=== PATIENT | female | born 1960 | race Caucasian/White ===

== ENCOUNTER → 2024-12-06 12:26 | Outpatient (REF) | payer BC, SELFPAY | LOC: PAVMRI 12:26 | PROVIDERS: ATTENDING PHYSICIAN Physical Medicine & Rehabilitation; FAMILY PHYSICIAN Internal Medicine | DX: S76.012A Strain of muscle, fascia and tendon of left hip, initial encounter (principal) | CPT/HCPCS: 73721 ==

== ENCOUNTER → 2025-03-17 09:44 | Outpatient (REF) | payer BC, SELFPAY | LOC: HWRAD 09:44 | PROVIDERS: ATTENDING PHYSICIAN Orthopaedic Surgery Adult Reconstructive Orthopaedic Surgery; FAMILY PHYSICIAN Internal Medicine | DX: Z96.651 Presence of right artificial knee joint (principal) | CPT/HCPCS: 73700 ==

== ENCOUNTER 2025-03-23 13:46 | Emergency (ER) | payer BC, SELFPAY ==
[2025-03-23 14:17] LABS: Hematocrit 39.2 % (37.0-47.0); Hemoglobin 13.1 g/dL (12.0-16.0); Mean Corp Hgb Conc. 33.4 g/dL (33.0-37.0); Mean Corpuscular Volume 85.6 fL (81.0-99.0); Nucleated Red Blood Cells % 0 %; Platelet Count 173 10^3/uL (130-400); Red Cell Dist. Width 13.2 % (11.5-14.5)
[2025-03-23 14:44] LABS: ALT (SGPT) 29 U/L (0-35); AST (SGOT) 25 U/L (14-36); Albumin 4.5 g/dl (3.5-5.0); Alkaline Phosphatase 35 U/L (38-126); Blood Urea Nitrogen 16 mg/dl (7-17); Calcium 9.6 mg/dl (8.4-10.2); Carbon Dioxide 27 mmol/L (22-30); Chloride 108 mmol/L (98-107); Glucose 106 mg/dl (70-99); Lipase 51 U/L (23-300); Potassium 4.0 mmol/L (3.5-5.1); Sodium 141 mmol/L (135-145); Total Protein 6.9 g/dl (6.3-8.2); eGFR > 60.00
[2025-03-23 15:57] LABS: Urine Character Clear (Clear)
[2025-03-23 16:06] LABS: Urine Squamous Cell 16-20 /LPF (Few)
[2025-03-23 16:07] LABS: Urine Red Blood Cell 0-2 /HPF (0-2)
[2025-03-23 17:40] VITALS: BMI 29.1
[2025-03-23 17:44] VITALS: BP 154/87
[2025-03-23 19:00] VITALS: BP 126/73
--- NOTE | 2025-03-23 19:15 | ED.GENMED ---
History of Present Illness
General
Chief Complaint: Abdominal Pain
Time Seen by Provider: 03/23/25 17:17
History of Present Illness
History of Present Illness:
64-year-old female presents to the emergency department for evaluation of right lower abdominal pain radiating to the right low back for the past 4 days. No fevers. Reports nausea without vomiting or diarrhea. No night sweats. No lower urinary
tract voiding symptoms. Prior abdominal surgical history includes cholecystectomy and partial hysterectomy
Review of Systems
Review of Systems
Allergies reviewed?: Yes
All Other Systems: ROS reviewed and negative except as documented in HPI and ROS
Phy Exam
Physical Exam
Physical Exam:
GEN: Well appearing, NAD, WDWN
HEENT: Oral mucosa moist, no scleral icterus
Cardiac: Regular rate
Lung: No respiratory distress, no tachypnea
Abdomen: Soft, minimal tenderness to the right lower quadrant not specific to McBurney's point, no rigidity
MSK: No gross deformity or injuries
Skin: Good color, no pallor or jaundice, no rashes
Neuro: AO x3, moves all extremities freely
Psych: Calm, cooperative
Course
Orders/Labs/Results
Orders:
Orders
03/23/25 13:48
EKG- Treatment ONCE
03/23/25 14:11
Complete Blood Count/With Diff Urgent
Comprehensive Metabolic Panel Urgent
Lipase Urgent
03/23/25 15:50
Urinalysis Reflex To Culture Urgent
Date Specimen was Collected: 03/23/25
Time Specimen was Collected: 13:48
Urine Microscopic Reflex Cult Urgent
Urine Culture Urgent
PEARL Source: U
Specimen Description:
Date Specimen was Collected: 03/23/25
Time Specimen was Collected: 13:48
03/23/25 17:45
CT Abd/Pel (IV only)-DH only Urgent
Comment:
Reason For Exam: RLQ pain
03/23/25 19:17
Ketorolac [Toradol] 15 mg IV NOW STA
Abnormal Lab Results
03/23/25 03/23/25
14:11 15:50
Chloride 108 H mmol/L
(98-107)
Glucose 106 H mg/dl
(70-99)
Alkaline Phosphatase 35 L U/L
(38-126)
Ur Occult Blood Reflex 1+ A
(Negative)
Leukocyte Esterase Rfl 2+ A
(Negative)
Urine WBC (Reflex) 11-15 A /HPF
(0-5)
Urine Bacteria (Reflex) Few A
(Negative)
03/23/25 14:11
03/23/25 14:11
Vital Signs
Initial and Last Documented VS:
Initial Vital Signs
Pulse Ox
98
03/23/25 17:41
Last Documented Vital Signs
Temp BP Pulse Ox
98.4 F 154/87 96
03/23/25 17:46 03/23/25 17:44 03/23/25 19:17
MDM/Problems Addressed
MDM/Problems Addressed:
Exam did reveal tenderness thus patient was sent for CT scan that was unrevealing. May be musculoskeletal in nature given that she notes worsening when lying flat. Will trial NSAIDs and muscle relaxants
*Pulse Oximetry
SaO2: 96
Oxygen Mode of Delivery: Room air
Patient hypoxic: no
*Critical Care Note
Total Time (30-74mins, 75-104mins- exclusive of procedures): Not Applicable
ED Attending Note
-
Portions of this chart may have been created with voice recognition software.� Occasional wrong word or��sound alike� substitutions may have occurred due to the inherent limitations of voice recognition software.
Discharge Plan
Departure
Patient Disposition: Home (Routine Discharge)
Date of Disposition: 03/23/25
Time of Disposition: 19:17
Patient with high blood pressure during this ER visit?: No
Discharge Problem:
Abdominal pain, lower
Instructions: Abdominal Pain
Prescriptions:
New
methocarbamol 750 mg tablet
750 - 1,500 mg PO HS Qty: 20 0RF
meloxicam 15 mg tablet
15 mg PO DAILY Qty: 10 0RF
Interventions
Interventions:
*Risk Screen - Suicide Last Done: 03/23/25 13:52
*General Assessment Last Done: 03/23/25 13:52
*Neglect/Abuse Screening Last Done: 03/23/25 17:41
*ED- Fall Risk Assessment Last Done: 03/23/25 17:41
*ED COVID-19 Vaccine History Last Done: 03/23/25 17:41
VG-Yxkuzb-Uyoxucwosj Assessment Last Done: 03/23/25 17:41
Discharge Date and Time
Print Language: HEBREW
[2025-03-23] MEDS: TORADOL 15 MG IV (19:27)
== END 2025-03-23 19:43 | disposition home or self-care (01) ==
LOC: EMR 13:46
PROVIDERS: Emergency Medicine; EMERGENCY PHYSICIAN Student in an Organized Health Care Education/Training Program; FAMILY PHYSICIAN Internal Medicine
DX: R10.31 Right lower quadrant pain (principal); R11.0 Nausea; Z90.49 Acquired absence of other specified parts of digestive tract; Z90.711 Acquired absence of uterus with remaining cervical stump
CPT/HCPCS: 96374; 99284; 74177; 80053; 81003; 81015; 83690; 85025; 87086; 93005; Q9967

== ENCOUNTER → 2025-05-19 08:28 | Outpatient (REF) | payer BC, SELFPAY | LOC: HWRCS 08:28 | PROVIDERS: ATTENDING PHYSICIAN Internal Medicine Cardiovascular Disease; FAMILY PHYSICIAN Internal Medicine | DX: R07.89 Other chest pain (principal) | CPT/HCPCS: 78452; 93017; A9500; J2785 ==